=== PATIENT | male | born 1975 ===

== ENCOUNTER 2017-07-07 09:47 | Emergency (ER) | payer MEDICAID ==
[2017-07-07 09:57] VITALS: BP 132/71; PULSE 85; RESP 16; TEMP 99.9; O2SAT 98
[2017-07-07] MEDS ORDERED: Sodium Chloride 0.9% 1,000 ML IV STA (10:52)
--- NOTE | 2017-07-07 11:13 | ED PDOC ---
HPI: Abdomen Time Seen by Provider: 07/07/17 10:06 Chief Complaint (Nursing): Abdominal Pain Chief Complaint (Provider): Abdominal Pain History Per: Patient History/Exam Limitations: no limitations Onset/Duration Of Symptoms: Days (x 3) Current Symptoms Are (Timing): Still Present Associated Symptoms: Nausea Additional Complaint(s): Julio César Brunner is a 42 y/o male who presents complaining of sharp, intermittent abdominal pain for 3 days. Also reports nausea but no vomiting, constipation, diarrhea, or fever. PMD: None Past Medical History Reviewed: Historical Data, Nursing Documentation, Vital Signs Vital Signs: Last Vital Signs Temp 99.9 F H 07/07/17 09:56 Pulse 85 07/07/17 09:56 Resp 16 07/07/17 09:56 BP 132/71 07/07/17 09:56 Pulse Ox 98 07/07/17 11:14 - Medical History PMH: Diabetes, Pneumothorax (punctured lung secondary to work-related injury) Denies: Chronic Kidney Disease - Surgical History Other surgeries: Right arm surgery - Family History Family History: States: Unknown Family Hx, Diabetes (father) - Social History Current smoker - smoking cessation education provided: No Alcohol: None Drugs: Denies - Immunization History Hx Influenza Vaccination: Yes - Home Medications Home Medications: Ambulatory Orders Medication Instructions Recorded Famotidine [Pepcid] 20 mg PO BID #20 tab 07/07/17 - Allergies Allergies/Adverse Reactions: Allergies Allergy/AdvReac Type Severity Reaction Status Date / Time No Known Allergies Allergy Verified 07/07/17 10:14 Review of Systems ROS Statement: Except As Marked, All Systems Reviewed And Found Negative Constitutional: Negative for: Fever Gastrointestinal: Positive for: Nausea, Abdominal Pain. Negative for: Vomiting , Diarrhea, Constipation Physical Exam - Reviewed Nursing Documentation Reviewed: Yes Vital Signs Reviewed: Yes - Physical Exam Appears: Positive for: Non-toxic, No Acute Distress Head Exam: Positive for: ATRAUMATIC, NORMAL INSPECTION, NORMOCEPHALIC Skin: Positive for: Normal Color, Warm, Dry Eye Exam: Positive for: EOMI, Normal appearance, PERRL Neck: Positive for: Normal, Painless ROM Cardiovascular/Chest: Positive for: Regular Rate, Rhythm. Negative for: Murmur Respiratory: Positive for: Normal Breath Sounds. Negative for: Accessory Muscle Use, Respiratory Distress Gastrointestinal/Abdominal: Positive for: Soft, Tenderness (Epigastric tenderness). Negative for: Guarding, Rebound Back: Positive for: Normal Inspection. Negative for: Vertebral Tenderness Extremity: Positive for: Normal ROM. Negative for: Pedal Edema, Deformity Neurologic/Psych: Positive for: Alert, Oriented. Negative for: Motor/Sensory Deficits - Laboratory Results Result Diagrams: 07/07/17 11:20 07/07/17 11:20 - ECG O2 Sat by Pulse Oximetry: 98 (RA) Pulse Ox Interpretation: Normal Medical Decision Making Medical Decision Making: Time: 10:50 Initial Plan: --EKG --CMP --Lipase --CBC --Urine dipstick --Urinalysis --POC blood glucose --NS IV 1000 ml at 1000 mls/hr --Pepcid 20 mg IV --Zofran 4 mg IV --Pending US Abdomen TIME: 12:23 US ABDOMEN: FINDINGS: LIVER: Measures 13.5 cm in length. Normal echogenicity of the liver parenchyma. No mass. No intrahepatic bile duct dilatation. GALLBLADDER: Unremarkable. No gallstones. COMMON BILE DUCT: Measures 2.4 mm. No stones. No dilatation. PANCREAS: Unremarkable as visualized. No mass. No ductal dilatation. RIGHT KIDNEY: Measures 10.3 cm in length. Normal echogenicity. No calculus, mass , or hydronephrosis. AORTA: No aneurysmal dilatation IVC: Unremarkable. OTHER FINDINGS: None. IMPRESSION: Normal examination. Time: 12:39 Clinical Impression: Gastritis Upon provider reevaluation patient is medically stable, and requires no further treatment in the ED at this time. Patient will be discharged with Rx for Pepcid. Counseling was provided and all questions were answered regarding diagnosis and need for follow up with PMD. There is agreement to discharge plan. Return if symptoms persist or worsen. Scribe Attestation: Documented by Suki Marrufo, acting as a scribe for Tracey Hankins MD Provider Scribe Attestation: All medical record entries made by the Scribe were at my direction and personally dictated by me. I have reviewed the chart and agree that the record accurately reflects my personal performance of the history, physical exam, medical decision making, and the department course for this patient. I have also personally directed, reviewed, and agree with the discharge instructions and disposition. Disposition - Clinical Impression Clinical Impression: Gastritis - Patient ED Disposition Is Patient to be Admitted: No Counseled Patient/Family Regarding: Studies Performed, Diagnosis, Need For Followup, Rx Given - Disposition Referrals: [facility] [Outside] Disposition: Routine/Home Disposition Time: 12:39 Condition: STABLE Prescriptions: Famotidine [Pepcid] 20 mg PO BID #20 tab Instructions: Gastritis (ED) Forms: [facility] (Tongan) Print Language: UKRAINIAN
[2017-07-07 11:46] LABS: BASO % 0.7 % (0.0-2.0); EOS % 0.1 % (0.0-4.0); HEMATOCRIT 43.9 % (35.0-51.0); LYMPH # 1.1 K/uL (1.0-4.3); LYMPH % 16.3 % (20.0-40.0); MEAN CELL VOLUME 90.7 fl (80.0-94.0); MEAN CORPUSCULAR HEMOGLOBIN 31.1 pg (27.0-31.0); MEAN CORPUSCULAR HGB CONC 34.3 g/dL (33.0-37.0); MEAN PLATELET VOLUME 9.9 fl (7.2-11.7); MONO # 0.7 K/uL (0.0-0.8); MONO % 10.8 % (0.0-10.0); NEUT # 4.8 K/uL (1.8-7.0); NEUT % 72.1 % (50.0-75.0); RED CELL DISTRIBUTION WIDTH 12.3 % (11.5-14.5); WHITE BLOOD COUNT 6.7 K/uL (4.8-10.8)
[2017-07-07 11:48] LABS: ALB/GLOB RATIO 1.5 (1.0-2.1); ALKALINE PHOSPHATASE 61 U/L (38-126); ALT/SGPT 35 U/L (21-72); AST/SGOT 56 U/L (17-59); BILIRUBIN,TOTAL 0.7 mg/dl (0.2-1.3); BLOOD UREA NITROGEN 20 mg/dl (9-20); CALCIUM 9.3 mg/dL (8.4-10.2); CARBON DIOXIDE 26 mmol/L (22-30); CHLORIDE 102 mmol/L (98-107); GFR AFRICAN-AMERICAN > 60; GLUCOSE,RANDOM 101 mg/dL (75-110); LIPASE 112 U/L (23-300); POTASSIUM 3.8 MMOL/L (3.6-5.0); SODIUM 140 mmol/l (132-148); TOTAL PROTEIN 6.9 G/DL (6.3-8.2)
[2017-07-07 11:53] LABS: RBC URINE 3 /hpf (0-3); URINE BILIRUBIN NEGATIVE (NEGATIVE); URINE BLOOD NEGATIVE (NEGATIVE); URINE COLOR YELLOW (YELLOW); URINE GLUCOSE (UA) NEG (Normal); URINE KETONE NEGATIVE (NEGATIVE); URINE LEUKOCYTE ESTERASE NEG Leu/uL (Negative); URINE PROTEIN NEGATIVE (NEGATIVE); URINE UROBILINOGEN 0.2-1.0 mg/dL (0.2-1.0); WBC URINE < 1 /hpf (0-5)
--- NOTE | 2017-07-07 12:25 | US ---
HISTORY: Epigastric pain COMPARISON: None. TECHNIQUE: Grayscale imaging was performed. FINDINGS: LIVER: Measures 13.5 cm in length. Normal echogenicity of the liver parenchyma. No mass. No intrahepatic bile duct dilatation. GALLBLADDER: Unremarkable. No gallstones. COMMON BILE DUCT: Measures 2.4 mm. No stones. No dilatation. PANCREAS: Unremarkable as visualized. No mass. No ductal dilatation. RIGHT KIDNEY: Measures 10.3 cm in length. Normal echogenicity. No calculus, mass, or hydronephrosis. AORTA: No aneurysmal dilatation. IVC: Unremarkable. OTHER FINDINGS: None . IMPRESSION: Normal examination.
[2017-07-07] MEDS ORDERED: Atrop/Hyos/Scop/PhenoB Elixir PO STA (12:31)
[2017-07-07] MEDS ORDERED: Alum-Mag Hydrox-Simethicone Susp (30 mL) PO STA (12:32)
[2017-07-07] MEDS ORDERED: Alum-Mag Hydrox-Simethicone Susp (30 mL) ONE (12:40)
--- NOTE | 2017-07-08 01:54 | CARD ---
APPROVED REPORT EKG Measurement Heart [id number] <Conclusion> Normal sinus rhythm Normal ECG
== END 2017-07-07 13:23 | disposition home or self-care (01) ==
LOC: H.ER 09:47
DX: K29.70 Gastritis, unspecified, without bleeding (principal)
CPT/HCPCS: 76705; 80053; 81003; 82948; 83690; 85025; 93005; 96361; 96374; 96375; 99284; J2405; J7040